=== PATIENT | male | born 1995 | race Two or more races ===

== ENCOUNTER 2020-06-02 18:35 | Emergency (ER) | payer MEDICARE, MEDICAID ==
[~2020-06-02] VITALS: Ht 157.5 cm; Wt 59.0 kg
[2020-06-02 18:38] VITALS: BP 115/54
== END 2020-06-02 19:43 | disposition left against medical advice (07) ==
LOC: ER 18:35
DX: R50.9 Fever, unspecified (principal); Z53.21 Procedure and treatment not carried out due to patient leaving prior to being seen by health care provider
CPT/HCPCS: 36415; 87426

== ENCOUNTER 2020-06-04 14:44 | Inpatient (IN) | payer MEDICARE, MEDICAID ==
[~2020-06-04] VITALS: Ht 160 cm; Wt 74.1 kg
[2020-06-04] MEDS ORDERED: SODIUM CHLORIDE 0.9% 1,000 ML IVB ONE (16:00)
[2020-06-04] MEDS ORDERED: AZITHROMYCIN 500MG/ 250ML 250 ML IV ONE (16:00)
[2020-06-04 18:09] LABS: Basophils # (auto) 0 10 ^3/uL (0-0.2); Basophils % (auto) 0.1 % (0.0-2.0); Eosinophils # (auto) 0 10 ^3/uL (0-0.8); Eosinophils % (auto) 0.2 % (0.0-7.0); Hematocrit 43.4 % (41.0-53.0); Lymphocytes # (auto) 0.6 10 ^3/uL (0.4-5.4); Lymphocytes % (auto) 12.8 % (10.0-50.0); Mean Corpuscular Hemoglobin 32.8 pg (28.0-32.0); Mean Corpuscular Hgb Conc. 34.6 g/dL (32.0-36.0); Mean Corpuscular Volume 94.6 fL (80.0-100.0); Monocytes # (auto) 0.4 10 ^3/uL (0-1.3); Monocytes % (auto) 9.9 % (0.0-12.0); Neutrophils # (auto) 3.4 10 ^3/uL (1.6-8.6); Nucleated Red Blood Cells % 0.2 %; Platelet Count (auto) 152 10^3/uL (140-450); Red Blood Cells 4.58 10^6/uL (4.5-5.90); Red Cell Distribution Width 13.5 % (11.8-14.3); White Blood Cell 4.5 10^3/uL (4.4-10.8)
[2020-06-04] MEDS ORDERED: LORazepam 2MG/ML-1ML VIAL ONE (18:20)
[2020-06-04 18:23] LABS: INR 1.03 (0.9-1.15); Partial Thromboplastin Time 30.8 sec (23.0-31.2)
[2020-06-04 18:24] LABS: Albumin 3.6 g/dL (3.4-5.0); BUN/Creatinine Ratio 10.6; Calcium 8.5 mg/dL (8.5-10.1); Magnesium 2.3 mg/dL (1.6-2.6); Potassium 3.5 mmol/L (3.5-5.1)
[2020-06-04 18:26] LABS: Bilirubin, Total 0.6 mg/dL (0.2-1.0); Total Protein 8.1 g/dL (6.4-8.2)
[2020-06-04] MEDS ORDERED: LORazepam 2MG/ML-1ML VIAL IV ONE ×2 (18:30→22:30)
[2020-06-05] VITALS (8 sets, daily range): BP systolic 91–122; BP diastolic 56–74
[2020-06-05] MEDS ORDERED: MORPHINE SULF INJ 2 MG/ML SYRINGE 1ML IV PRN (00:30)
[2020-06-05] MEDS ORDERED: ONDANSETRON HCL 4 MG/2 ML VIAL IV PRN (00:30)
[2020-06-05] MEDS ORDERED: NITROGLYCERIN 0.4 MG SL TAB SL PRN (00:30)
[2020-06-05] MEDS ORDERED: DOCUSATE SOD 100 MG CAP PO PRN (00:30)
[2020-06-05] MEDS ORDERED: ACETAMINOPHEN 325 MG TAB PO PRN (00:30)
[2020-06-05] MEDS ORDERED: HYDROcodone-ACET 5/325MG TAB PO PRN (00:30)
[2020-06-05] MEDS: LORazepam 2MG/ML-1ML VIAL IV PRN ×4 (02:00→22:35)
[2020-06-05 02:36] LABS: Basophils # (auto) 0 10 ^3/uL (0-0.2); Basophils % (auto) 0.5 % (0.0-2.0); Eosinophils # (auto) 0 10 ^3/uL (0-0.8); Hematocrit 41.4 % (41.0-53.0); Hemoglobin 14.4 g/dL (13.5-17.5); Lymphocytes # (auto) 1.1 10 ^3/uL (0.4-5.4); Lymphocytes % (auto) 36.5 % (10.0-50.0); Mean Corpuscular Hemoglobin 32.9 pg (28.0-32.0); Mean Corpuscular Hgb Conc. 34.7 g/dL (32.0-36.0); Mean Corpuscular Volume 94.8 fL (80.0-100.0); Monocytes # (auto) 0.4 10 ^3/uL (0-1.3); Neutrophils # (auto) 1.5 10 ^3/uL (1.6-8.6); Nucleated Red Blood Cells % 0.2 %; Platelet Count (auto) 153 10^3/uL (140-450); Red Blood Cells 4.37 10^6/uL (4.5-5.90); Red Cell Distribution Width 13.5 % (11.8-14.3)
[2020-06-05 02:48] LABS: Albumin 3.1 g/dL (3.4-5.0); BUN/Creatinine Ratio 11.5; Calcium 8.3 mg/dL (8.5-10.1); Potassium 3.5 mmol/L (3.5-5.1)
[2020-06-05 02:51] LABS: Bilirubin, Total 0.5 mg/dL (0.2-1.0); Total Protein 7.1 g/dL (6.4-8.2)
[2020-06-05] MEDS: D5W/SOD CHL 0.45% 1,000 ML IV SCH ×2 (05:43→21:12)
[2020-06-05] MEDS: ALBUTEROL SULF HFA 90MCG INH 200DOSE IN SCH ×3 (06:00→21:52)
[2020-06-05] MEDS: ASCORBIC ACID 500 MG TAB PO SCH ×2 (10:00→21:45)
[2020-06-05] MEDS: ENOXAPARIN SOD 40 MG/0.4 ML SYRINGE SC SCH (10:00)
[2020-06-05] MEDS: MULTIPLE VITAMIN TAB PO SCH (10:00)
[2020-06-05] MEDS: AZITHROMYCIN 500MG/ 250ML 250 ML IV SCH (10:00)
[2020-06-05] MEDS: PANTOPRAZOLE 40 MG/10 ML VIAL INJ IV SCH (10:00)
[2020-06-05] MEDS: ZINC SULFATE 220mg CAP or TAB PO SCH (10:00)
[2020-06-06 05:00] VITALS: BP 110/68
[2020-06-06 05:50] LABS: Basophils # (auto) 0 10 ^3/uL (0-0.2); Basophils % (auto) 0.3 % (0.0-2.0); Eosinophils # (auto) 0 10 ^3/uL (0-0.8); Eosinophils % (auto) 0.2 % (0.0-7.0); Hematocrit 39.5 % (41.0-53.0); Lymphocytes # (auto) 0.9 10 ^3/uL (0.4-5.4); Lymphocytes % (auto) 21.9 % (10.0-50.0); Mean Corpuscular Hemoglobin 33.5 pg (28.0-32.0); Mean Corpuscular Hgb Conc. 35.5 g/dL (32.0-36.0); Mean Corpuscular Volume 94.3 fL (80.0-100.0); Monocytes # (auto) 0.5 10 ^3/uL (0-1.3); Monocytes % (auto) 13.1 % (0.0-12.0); Neutrophils # (auto) 2.7 10 ^3/uL (1.6-8.6); Neutrophils % (auto) 64.5 % (37.0-80.0); Nucleated Red Blood Cells % 0.1 %; Platelet Count (auto) 155 10^3/uL (140-450); Red Blood Cells 4.18 10^6/uL (4.5-5.90); Red Cell Distribution Width 13.4 % (11.8-14.3); White Blood Cell 4.1 10^3/uL (4.4-10.8)
[2020-06-06 06:08] LABS: Potassium 3.4 mmol/L (3.5-5.1)
[2020-06-06 06:14] LABS: Albumin 2.7 g/dL (3.4-5.0); BUN/Creatinine Ratio 11.8; Bilirubin, Total 0.5 mg/dL (0.2-1.0); Calcium 7.9 mg/dL (8.5-10.1); Total Protein 6.9 g/dL (6.4-8.2)
[2020-06-06] MEDS: ALBUTEROL SULF HFA 90MCG INH 200DOSE IN SCH ×3 (06:45→22:00)
[2020-06-06 08:30] VITALS: BP 115/64
[2020-06-06] MEDS ORDERED: LORazepam 2MG/ML-1ML VIAL IM PRN (09:15)
[2020-06-06] MEDS: ENOXAPARIN SOD 40 MG/0.4 ML SYRINGE SC SCH (09:43)
[2020-06-06] MEDS: ZINC SULFATE 220mg CAP or TAB PO SCH (10:00)
[2020-06-06] MEDS: MULTIPLE VITAMIN TAB PO SCH (10:00)
[2020-06-06] MEDS: ASCORBIC ACID 500 MG TAB PO SCH ×2 (10:00→22:00)
[2020-06-06] MEDS: cefTRIAXone 1GM/50ML D5W 50 ML IV SCH (11:32)
[2020-06-06] MEDS: DexAMETHasone SOD PHOS 10MG/1ML VIAL INJ IV SCH (11:33)
[2020-06-06] MEDS: AZITHROMYCIN 500MG/ 250ML 250 ML IV SCH (11:34)
[2020-06-06] MEDS: PANTOPRAZOLE 40 MG/10 ML VIAL INJ IV SCH (11:36)
[2020-06-06 12:30] VITALS: BP 118/67
[2020-06-06 17:00] VITALS: BP 123/75
[2020-06-06] MEDS: LORazepam 2MG/ML-1ML VIAL IV PRN (19:55)
[2020-06-06 20:00] VITALS: BP_SYST 112
[2020-06-06 22:00] VITALS: BP 112/60
[2020-06-07 05:00] VITALS: BP 121/81
[2020-06-07] MEDS: LORazepam 2MG/ML-1ML VIAL IV PRN ×3 (05:15→18:49)
[2020-06-07] MEDS: D5W/SOD CHL 0.45% 1,000 ML IV SCH ×2 (05:36→13:57)
[2020-06-07] MEDS: ALBUTEROL SULF HFA 90MCG INH 200DOSE IN SCH ×3 (06:25→19:00)
[2020-06-07 08:30] VITALS: BP 122/69
[2020-06-07] MEDS: ENOXAPARIN SOD 40 MG/0.4 ML SYRINGE SC SCH (10:00)
[2020-06-07] MEDS: MULTIPLE VITAMIN TAB PO SCH (10:00)
[2020-06-07] MEDS: ZINC SULFATE 220mg CAP or TAB PO SCH (10:00)
[2020-06-07] MEDS: cefTRIAXone 1GM/50ML D5W 50 ML IV SCH (10:57)
[2020-06-07] MEDS: DexAMETHasone SOD PHOS 10MG/1ML VIAL INJ IV SCH (10:57)
[2020-06-07] MEDS: PANTOPRAZOLE 40 MG/10 ML VIAL INJ IV SCH (10:58)
[2020-06-07] MEDS: AZITHROMYCIN 500MG/ 250ML 250 ML IV SCH (10:58)
[2020-06-07] MEDS: ASCORBIC ACID 500 MG TAB PO SCH ×2 (10:59→22:00)
[2020-06-07 12:30] VITALS: BP 127/75
[2020-06-07 17:00] VITALS: BP 126/46
[2020-06-07 21:51] VITALS: BP 133/76
[2020-06-08] MEDS: LORazepam 2MG/ML-1ML VIAL IV PRN (00:51)
[2020-06-08 04:51] VITALS: BP 95/67
[2020-06-08] MEDS: ALBUTEROL SULF HFA 90MCG INH 200DOSE IN SCH ×2 (06:00→22:00)
[2020-06-08] MEDS: MULTIPLE VITAMIN TAB PO SCH (10:00)
[2020-06-08] MEDS: ASCORBIC ACID 500 MG TAB PO SCH ×2 (10:00→21:25)
[2020-06-08] MEDS: PANTOPRAZOLE 40 MG/10 ML VIAL INJ IV SCH (10:00)
[2020-06-08] MEDS: ENOXAPARIN SOD 40 MG/0.4 ML SYRINGE SC SCH (10:00)
[2020-06-08] MEDS: ZINC SULFATE 220mg CAP or TAB PO SCH (10:00)
[2020-06-08] MEDS: DexAMETHasone SOD PHOS 10MG/1ML VIAL INJ IV SCH (10:00)
[2020-06-08 10:12] VITALS: BP 97/76
[2020-06-08] MEDS ORDERED: LORazepam 2MG/ML-1ML VIAL IM PRN (12:00)
[2020-06-08] MEDS ORDERED: AZITHROMYCIN 200 MG/5 ML ORAL SUSP PO ONE (13:15)
[2020-06-08 15:22] VITALS: BP 97/76
[2020-06-09 05:00] VITALS: BP 112/68
[2020-06-09] MEDS: ALBUTEROL SULF HFA 90MCG INH 200DOSE IN SCH (07:55)
[2020-06-09 08:32] VITALS: BP 94/54
[2020-06-09] MEDS: ENOXAPARIN SOD 40 MG/0.4 ML SYRINGE SC SCH (10:00)
[2020-06-09] MEDS: PANTOPRAZOLE 40 MG/10 ML VIAL INJ IV SCH (10:00)
[2020-06-09] MEDS: AZITHROMYCIN 200 MG/5 ML ORAL SUSP PO SCH (10:00)
[2020-06-09] MEDS: DexAMETHasone SOD PHOS 10MG/1ML VIAL INJ IV SCH (10:00)
[2020-06-09] MEDS: ASCORBIC ACID 500 MG TAB PO SCH ×2 (10:00→21:34)
[2020-06-09] MEDS: MULTIPLE VITAMIN TAB PO SCH (10:00)
[2020-06-09] MEDS: ZINC SULFATE 220mg CAP or TAB PO SCH (10:00)
[2020-06-09 12:48] VITALS: BP 128/73
[2020-06-09] MEDS ORDERED: ALBUTEROL SULF HFA 90MCG INH 200DOSE IN PRN (15:15)
[2020-06-09 16:36] VITALS: BP 110/63
[2020-06-09 21:30] VITALS: BP 117/65
[2020-06-10 05:00] VITALS: BP 101/56
[2020-06-10 08:15] VITALS: BP 105/66
[2020-06-10 08:36] VITALS: BP 105/66
[2020-06-10] MEDS: DexAMETHasone SOD PHOS 10MG/1ML VIAL INJ IV SCH (10:00)
[2020-06-10] MEDS: ASCORBIC ACID 500 MG TAB PO SCH (10:00)
[2020-06-10] MEDS: AZITHROMYCIN 200 MG/5 ML ORAL SUSP PO SCH (10:00)
[2020-06-10] MEDS: ZINC SULFATE 220mg CAP or TAB PO SCH (10:00)
[2020-06-10] MEDS: MULTIPLE VITAMIN TAB PO SCH (10:00)
[2020-06-10] MEDS: PANTOPRAZOLE 40 MG/10 ML VIAL INJ IV SCH (10:00)
[2020-06-10] MEDS: ENOXAPARIN SOD 40 MG/0.4 ML SYRINGE SC SCH (10:00)
[2020-06-10 11:02] VITALS: BP 105/66
[2020-06-10 12:32] VITALS: BP 96/56
== END 2020-06-10 12:20 | disposition home or self-care (01) | DRG 177 ==
LOC: ER 14:44 → TELE 14:45 → TELE-WESTW 06-05 01:58
PROVIDERS: ADMIT Nurse Practitioner Family; ATTEND Family Medicine
PROC: 05HD33Z Insertion of Infusion Device into Right Cephalic Vein, Percutaneous Approach (ICD-10-PCS; principal; 2020-06-06)
PROC: B54MZZA Ultrasonography of Right Upper Extremity Veins, Guidance (ICD-10-PCS; 2020-06-06)
DX: U07.1 COVID-19 (principal); J96.01 Acute respiratory failure with hypoxia; J12.82 Pneumonia due to coronavirus disease 2019; J98.11 Atelectasis; Q90.9 Down syndrome, unspecified; Z82.49 Family history of ischemic heart disease and other diseases of the circulatory system
CPT/HCPCS: 36415; 71045; 80053; 82728; 83605; 83735; 85025; 85379; 85610; 85730; 87040; 87426; 93970; 94640; A4565; C9113; G0378; J0696; J1100

== ENCOUNTER 2021-03-31 12:02 | Emergency (ER) | payer MEDICARE, MEDICAID ==
[~2021-03-31] VITALS: Ht 160 cm; Wt 67.4 kg
[2021-03-31 12:35] VITALS: BP 143/89
[2021-03-31 16:43] LABS: Basophils # (auto) 0 10 ^3/uL (0-0.2); Basophils % (auto) 0.5 % (0.0-2.0); Eosinophils # (auto) 0 10 ^3/uL (0-0.8); Eosinophils % (auto) 0.4 % (0.0-7.0); Hematocrit 47.4 % (41.0-53.0); Lymphocytes # (auto) 2.2 10 ^3/uL (0.4-5.4); Lymphocytes % (auto) 29.8 % (10.0-50.0); Mean Corpuscular Hemoglobin 32.5 pg (28.0-32.0); Mean Corpuscular Hgb Conc. 33.8 g/dL (32.0-36.0); Mean Corpuscular Volume 96.3 fL (80.0-100.0); Monocytes # (auto) 0.7 10 ^3/uL (0-1.3); Monocytes % (auto) 9.5 % (0.0-12.0); Neutrophils # (auto) 4.4 10 ^3/uL (1.6-8.6); Neutrophils % (auto) 59.8 % (37.0-80.0); Nucleated Red Blood Cells % 0.1 %; Red Blood Cells 4.92 10^6/uL (4.5-5.90); Red Cell Distribution Width 13.9 % (11.8-14.3); White Blood Cell 7.4 10^3/uL (4.4-10.8)
[2021-03-31 17:06] LABS: Albumin 3.9 g/dL (3.4-5.0); BUN/Creatinine Ratio 10.7; Calcium 8.7 mg/dL (8.5-10.1); Potassium 4.1 mmol/L (3.5-5.1)
[2021-03-31 17:08] LABS: Bilirubin, Total 0.7 mg/dL (0.2-1.0); Total Protein 7.6 g/dL (6.4-8.2)
[2021-03-31 17:21] LABS: INR 1.01 (0.9-1.15); Partial Thromboplastin Time 29.2 sec (23.6-33.0)
[2021-03-31] MEDS ORDERED: IOHEXOL 300 MG/ML 100ML BOTTLE IJ ONE (17:41)
== END 2021-03-31 20:42 | disposition home or self-care (01) ==
LOC: ER 12:02
DX: K92.2 Gastrointestinal hemorrhage, unspecified (principal)
CPT/HCPCS: 36415; 74176; 80053; 85025; 85610; 85730; 86850; 86900; 86901

== ENCOUNTER 2022-01-04 11:44 | Emergency (ER) | payer MEDICARE, MEDICAID ==
[~2022-01-04] VITALS: Ht 160 cm; Wt 77.0 kg
[2022-01-04] MEDS ORDERED: CEPH-510 PO (14:29)
[2022-01-04] MEDS ORDERED: ACET-1158 PO (14:29)
[2022-01-04] MEDS ORDERED: cefTRIAXone SOD 1,000 MG VL IM ONE (14:30)
[2022-01-04] MEDS ORDERED: LIDOCAINE 1% HCL (LOCAL ANESTH.) INJ 20ML MDV ONE (14:40)
[2022-01-04 14:58] VITALS: BP 122/77
== END 2022-01-04 15:07 | disposition home or self-care (01) ==
LOC: ER 11:44
DX: S60.455A Superficial foreign body of left ring finger, initial encounter (principal); L03.012 Cellulitis of left finger; Z82.79 Family history of other congenital malformations, deformations and chromosomal abnormalities; Z79.899 Other long term (current) drug therapy; X58.XXXA Exposure to other specified factors, initial encounter; Y93.89 Activity, other specified; Y92.89 Other specified places as the place of occurrence of the external cause; Y99.8 Other external cause status
CPT/HCPCS: 73140; 96372; 99283; J0696; J2001

== ENCOUNTER 2022-03-29 21:35 | Emergency (ER) | payer MEDICARE, MEDICAID ==
[~2022-03-29] VITALS: Ht 149.9 cm; Wt 80.4 kg
[~2022-03-29 21:35] MED LIST: ACET-1158 PO; CEPH-510 PO
[2022-03-29 23:42] VITALS: BP 117/76
== END 2022-03-30 01:44 | disposition home or self-care (01) ==
LOC: ER 21:35
DX: J06.9 Acute upper respiratory infection, unspecified (principal); Z20.822 Contact with and (suspected) exposure to COVID-19
CPT/HCPCS: 36415; 71045; 87426; 87804

== ENCOUNTER 2024-08-22 01:03 | Inpatient (IN) | payer MEDICARE, MEDICAID ==
[~2024-08-22] VITALS: Ht 162.6 cm; Wt 88.1 kg
[~2024-08-22 01:03] MED LIST changes: -ACET-1158 PO; +ACET500T58 PO
--- NOTE | 2024-08-22 02:03 | ED.PDOC ---
SOB-HPI HPI Comments This is a 29-year-old male with history of Down syndrome presents to the ER with mother C/O of non productive cough. Pt has PMH down syndrome, non verbal. Per legal guardian pt has had a non productive cough and "heavy breathing" today. Pt SPO2 93% on RA. Mom states symptoms started 2 months ago and has progressively gotten worse over the past 4 days. She notes patient has not been as active and seems short of breath walking short distances. Also notes patient stomach has been extremely bloated. Mother states concern because patient does not communicate any of his issues, or symptoms. Denies fevers, chills, nausea, vomiting, diarrhea, recent travel or recent ill contacts. Chief Complaint: Cough Time Seen by MD: 01:18 Primary Care Provider: Houston Crow notes: Nurses Notes, Medications, Allergies Information Source: Patient, Relative (Mother) Mode of Arrival: Ambulatory Past Medical History PAST MEDICAL HISTORY: Unknown Surgical History: Denies all surgeries Family History Family History: Unknown Social History Smoker: Non-Smoker Alcohol: Denies ETOH Use Drugs: Denies Drug Use Lives In: Home Constitutional: denies: chills, diaphoresis, fatigue, fever, malaise, sweats, weakness, others EENTM: denies: blurred vision, double vision, ear bleeding, ear discharge, ear drainage, ear pain, ear ringing, eye pain, eye redness, hearing loss, mouth pain, mouth swelling, nasal discharge, nose bleeding, nose congestion, nose pain, photophobia, tearing, throat pain, throat swelling, voice changes, others Respiratory: reports: cough, shortness of breath; denies: hemoptysis, orthopnea, SOB at rest, SOB with excertion, stridor, wheezing, others Cardiovascular: denies: chest pain, dizzy spells, diaphoresis, Dyspnea on exertion, edema, irregular heart beat, left arm pain, lightheadedness, palpitations, PND, syncope, others Gastrointestinal: denies: abdomen distended, abdominal pain, blood streaked bowels, constipated, diarrhea, dysphagia, difficulty swallowing, hematemesis, melena, nausea, poor appetite, poor fluid intake, rectal bleeding, rectal pain, vomiting, others Genitourinary: denies: burning, dysuria, flank pain, frequency, hematuria, incontinence, penile discharge, penile sore, pain, testicle pain, testicle swelling, urgency, others Neurological: denies: dizziness, fainting, headache, left sided numbness, left sided weakness, numbness, paresthesia, pre-existing deficit, right sided numbness, right sided weakness, seizure, speech problems, tingling, tremors, weakness, others Musculoskeletal: denies: back pain, gout, joint pain, joint swelling, muscle pain, muscle stiffness, neck pain, others Integumetry: denies: bruises, change in color, change in hair/nails, dryness, laceration, lesions, lumps, rash, wounds, others Allergic/Immunocompromised: denies: Difficulty Healing, Frequent Infections, Hives, Itching, others Hematologic/Lymphatic: denies: anemia, blood clots, easy bleeding, easy bruising, swollen glands, others Endocrine: denies: excessive hunger, excessive sweating, excessive thirst, excessive urination, flushing, intolerance to cold, intolerance to heat, unexplained weight gain, unexplained weight loss, others Psychiatric: denies: anxiety, bipolar disorder, depression, hopeless, panic disorder, schizophrenia, sleepless, suicidal, others Physical Exam General Appearance: No Apparent Distress, Normal HEENT: Normal ENT Inspection, Pharynx Normal, TMs Normal Neck: Full Range of Motion, Non-Tender Respiratory: Chest Non-Tender, Decreased Breath Sounds, No Accessory Muscle Use, No Respiratory Distress Cardiovascular: No Edema, No JVD, No Murmur, No Gallop, Normal Peripheral Pulses, Regular Rate/Rhythm Breast Exam: Deferred Gastrointestinal: Diffuse (Tenderness), Distended, No Organomegaly, No Pulsatile Mass, Normal Bowel Sounds, Soft Genitalia: Deferred Pelvic: Deferred Rectal: Deferred Extremities: No calf tenderness, Normal capillary refill, Normal inspection, Normal range of motion, Non-tender, No pedal edema Musculoskeletal : Apperance: Normal Neurologic: Alert, patent agent II-XII nml as Tested, No Motor Deficits, Normal Affect, Normal Mood, No Sensory Deficits Cerebellar Function: Normal Reflexes: Normal Skin: Dry, Normal Color, Warm Lymphatic: No Adenopathy Was a procedure done? Was a procedure done?: No Differential Dx Differential Diagnosis: Asthma, Bronchitis, Pneumonia, Allergic Rhinitis, URI X-Ray, Labs, Meds, VS Vital Signs Date Time Temp Pulse Resp B/P (MAP) Pulse Ox O2 Delivery O2 Flow Rate FiO2 08/22/24 08:00 103 20 94 Room Air* 0 21 08/22/24 08:00 98.6 103 20 146/75 (98) 94 98.6 08/22/24 06:41 97.8 100 20 123/77 (92) 95 97.8 08/22/24 04:29 110 08/22/24 02:27 112 20 96 Room Air 08/22/24 02:27 98.7 112 20 127/73 (91) 96 98.7 08/22/24 01:40 98.4 106 20 123/70 (87) 93 98.4 08/22/24 01:40 20 93 Room Air* 0 21 Lab Test 08/22/24 06:16 08/22/24 05:18 Range/Units Troponin I High Sensitivity < 3 L < 3 L </=54 ng/L White Blood Count 8.5 4.4-10.8 10^3/uL Red Blood Count 4.21 L 4.5-5.90 10^6/uL Hemoglobin 14.2 13.5-17.5 g/dL Hematocrit 40.9 L 41.0-53.0 % Mean Corpuscular Volume 97.2 80.0-100.0 fL Mean Corpuscular Hemoglobin 33.8 H 28.0-32.0 pg Mean Corpuscular Hemoglobin Concent 34.8 32.0-36.0 g/dL Red Cell Distribution Width 13.6 11.8-14.3 % Platelet Count 254 140-450 10^3/uL Mean Platelet Volume 7.3 6.9-10.8 fL Neutrophils (%) (Auto) 62.5 37.0-80.0 % Lymphocytes (%) (Auto) 24.1 10.0-50.0 % Monocytes (%) (Auto) 12.3 H 0.0-12.0 % Eosinophils (%) (Auto) 0.1 0.0-7.0 % Basophils (%) (Auto) 1.0 0.0-2.0 % Neutrophils # (Auto) 5.3 1.6-8.6 10 ^3/uL Lymphocytes # (Auto) 2.0 0.4-5.4 10 ^3/uL Monocytes # (Auto) 1.0 0-1.3 10 ^3/uL Eosinophils # (Auto) 0 0-0.8 10 ^3/uL Basophils # (Auto) 0.1 0-0.2 10 ^3/uL Nucleated Red Blood Cells 0.0 % Sodium Level 141 136-145 mmol/L Potassium Level 3.8 3.5-5.1 mmol/L Chloride Level 104 98-107 mmol/L Carbon Dioxide Level 25 20-31 mmol/L Anion Gap 12 5-15 Blood Urea Nitrogen 13 9-23 mg/dL Creatinine 1.14 0.700-1.30 mg/dL Glomerular Filtration Rate Calc 90 >90 mL/min BUN/Creatinine Ratio 11.4 10.0-20.0 Serum Glucose 117 H 74-106 mg/dL Calcium Level 9.8 8.7-10.4 mg/dL Total Bilirubin 0.2 0.2-1.0 mg/dL Aspartate Amino Transferase (AST) 20 13-40 U/L Alanine Aminotransferase (ALT) 30 7-40 U/L Alkaline Phosphatase 140 H 46-116 U/L B-Type Natriuretic Peptide 2.90 0-100 pg/mL Total Protein 7.3 5.7-8.2 g/dL Albumin 4.4 3.2-4.8 g/dL X-Ray, Labs, Meds, VS Comment IMAGING: Chest x-ray shows no pulmonary consolidation, edema or concerns. Noted cardiomegaly. CT chest IMPRESSION: 1. Mild patchy multifocal posterior right upper and left lower lobe pulmonary infiltrate which may be bilingual inside sales representative of early developing infectious process such as pneumonia. 2. 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 LABS: CBC CMP BNP Troponin PLAN: Admit for pneumonia, and shortness of breath. Furthermore, radiologist called regarding findings of suspected anterior right lung base extra lobar sequestration. Mother is a poor historian, states that she was unsure patient born with a genetic finding and also states it is unsure the patient has history of cardiomegaly she notes it was never mentioned to her. Consider cardiac echo, consultation with Cardiology and pulmonology for further evaluation. Time of 1ST Reevaluation: 02:03 Reevaluation 1ST: Unchanged Time of 2ND Reevaluation: 04:59 Reevaluation 2ND: Unchanged Patient Education/Counseling: Diagnosis, Treatment, Prognosis, Need For Follow Up Family Education/Counseling: Diagnosis, Treatment, Prognosis, Need For Follow Up Departure 1 Departure Time of Disposition: 05:26 Impression: Primary Impression: Pneumonia Qualified Codes: J18.9 - Pneumonia, unspecified organism Additional Impressions: Shortness of breath History of Down syndrome Disposition: ADMITTED INPATIENT Condition: Stable Discharged With: Relative (Mother) Critical Care Note Critical Care Time?: No Stability Stability form required: No Heart Score Heart Score: Heart Score Response (Comments) Value History Slightly Suspicious 0 EKG Normal 0 Age <45 0 Risk Factors 1 or 2 risk factors 1 Troponin Normal limit 0 Total 1 KELY NIXON August 22, 2024 02:03
--- NOTE | 2024-08-22 03:07 | DVH ---
CHEST RADIOGRAPH Indication: sob Technique: Frontal and lateral view of the chest was obtained Comparison: None FINDINGS: Lines and Tubes: None Lungs: Clear Pleura: No effusion. No pneumothorax. Cardiomediastinal contours: Cardiomegaly. Bones: Unremarkable IMPRESSION: 1. No evidence of acute disease. 2. Cardiomegaly.
--- NOTE | 2024-08-22 04:31 | ECG ---
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
--- NOTE | 2024-08-22 05:18 | DVH ---
Exam: CT CHST AB PEL WO CON-NO IV/ORAL History: sob, enlarged heart, ABD PAIN Comparison Study: None available at time of dictation. Technique: Multidetector spiral CT of the chest, abdomen and pelvis was performed from lower neck to pubic symphysis Axial, coronal and sagittal multiplanar reformats were performed by the technologist on a separate workstation. Radiation Dose : 1. Chest/Abdomen/Pelvis: CTDIvol 20.57 mGy, DLP 1453.7 mGy*cm. Findings: Lower neck: Normal thyroid. Lungs: Mild patchy multifocal infiltrate within the posterior right upper and lower lobes. No pleura l effusion or pneumothorax. Hypoattenuating cystic structure within the anterior right lung base abut ting the pericardium and anteriorly and inferiorly adjacent to the right hilum measures 7.8 x 6.2 cm in transaxial dimension and 4.4 cm in craniocaudal dimension, having an appearance consistent with pr obable extra lobar sequestration. Heart/Vascular Structures: Normal heart size. No pericardial effusion. Lymph Nodes: No adenopathy Pleura: No pleural effusion or significant pneumothorax. Liver: The liver is enlarged, measuring 19.7 cm in craniocaudal dimension. No focal lesions. Normal hepatic vascular enhancement. Gallbladder and Biliary Tree: Unremarkable Spleen: Unremarkable Pancreas: The pancreas is normal in appearance without focal lesions or abnormal enhancement. Adrenal Glands: Unremarkable Kidneys: Kidneys demonstrate normal symmetric enhancement without focal lesions, calculi or hydroneph rosis. Bladder: Unremarkable Bowel: The stomach is grossly normal in appearance. Small bowel and colon are normal in caliber and d istribution. The appendix is not visualized; however, no secondary findings of acute appendicitis id entified. Ascites: Absent Lymphadenopathy: No mesenteric, retroperitoneal or periportal lymphadenopathy. Abdominal Wall and Mesentery: Unremarkable. Vasculature: The visualized abdominal aorta is normal in size and caliber. Abdominal and pelvic vess els demonstrate normal enhancement. Pelvic Organs: Unremarkable Musculoskeletal: No aggressive focal bony lesions, acute fractures or dislocation. IMPRESSION: 1. Mild patchy multifocal posterior right upper and left lower lobe pulmonary infiltrate which may be inside outside sales representative of early developing infectious process such as pneumonia. 2. 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
[2024-08-22 05:41] LABS: Basophils # (auto) 0.1 10 ^3/uL (0-0.2); Eosinophils # (auto) 0 10 ^3/uL (0-0.8); Eosinophils % (auto) 0.1 % (0.0-7.0); Hematocrit 40.9 % (41.0-53.0); Hemoglobin 14.2 g/dL (13.5-17.5); Lymphocytes % (auto) 24.1 % (10.0-50.0); Mean Corpuscular Hemoglobin 33.8 pg (28.0-32.0); Mean Corpuscular Hgb Conc. 34.8 g/dL (32.0-36.0); Mean Corpuscular Volume 97.2 fL (80.0-100.0); Monocytes % (auto) 12.3 % (0.0-12.0); Neutrophils # (auto) 5.3 10 ^3/uL (1.6-8.6); Neutrophils % (auto) 62.5 % (37.0-80.0); Platelet Count (auto) 254 10^3/uL (140-450); Red Blood Cells 4.21 10^6/uL (4.5-5.90); Red Cell Distribution Width 13.6 % (11.8-14.3); White Blood Cell 8.5 10^3/uL (4.4-10.8)
[2024-08-22 06:09] LABS: Alanine Aminotransferase 30 U/L (7-40); Albumin 4.4 g/dL (3.2-4.8); Anion Gap 12 (5-15); Aspartate Aminotransferase 20 U/L (13-40); BUN/Creatinine Ratio 11.4 (10.0-20.0); Blood Urea Nitrogen 13 mg/dL (9-23); Calcium 9.8 mg/dL (8.7-10.4); Carbon Dioxide 25 mmol/L (20-31); Chloride 104 mmol/L (98-107); Potassium 3.8 mmol/L (3.5-5.1); Sodium 141 mmol/L (136-145); Total Protein 7.3 g/dL (5.7-8.2)
[2024-08-22 06:14] LABS: Glucose 117 mg/dL (74-106)
[2024-08-22 06:15] LABS: Alkaline Phosphatase 140 U/L (46-116); Bilirubin, Total 0.2 mg/dL (0.2-1.0)
[2024-08-22] MEDS: cefTRIAXone 1GM/50ML D5W 50 ML IV ONE (07:43)
[2024-08-22 08:00] VITALS: PULSE 103; RESP 20; O2SAT 94
[2024-08-22] MEDS ORDERED: HYDR-3682 PO (08:10)
[2024-08-22] MEDS ORDERED: CHLO25TA59 PO (08:10)
[2024-08-22] MEDS ORDERED: DIVA250T12 PO (08:10)
[2024-08-22] MEDS ORDERED: TRAZ-227 PO (08:10)
[2024-08-22] MEDS ORDERED: ACETAMINOPHEN 325 MG TAB PO PRN (08:15)
[2024-08-22] MEDS ORDERED: ONDANSETRON HCL 4 MG/2 ML VIAL IV PRN (08:15)
--- NOTE | 2024-08-22 08:26 | DVHHP2 ---
History of Present Illness Reason for Visit: Cough History of Present Illness Ismael Shultz is a 29-year-old male with past medical history of Down syndrome and COVID who presents to the ED with a nonproductive cough and distended abdomen for 1 month per mom. Patient is nonverbal and mom Arlyn is at the chairside. Per mom she denies patient having any chest pain, shortness of breath, fever, chills, lightheadedness, weakness, dizziness, recent travels, recent sick contacts, recent ingestion of spoiled food, abdominal pain, nausea, vomiting, or diarrhea. Per mom she says she has not seen a in a patient access specialist for her child. Past Medical History Down Syndrome COVID Past Surgical History: None Family History: None Smoke: No ALCOHOL: none Drugs: None Lives: with Family Domestic Violence: Neg Review of Systems Gastrointestinal: Other (Distended abdomen) Allergies: Coded Allergies: NO KNOWN ALLERGIES (Unverified , 06/02/20) Medications Current Medications Medications Dose Ordered Sig/Erica Route Start Time Stop Time Status Last Admin Dose Admin Ceftriaxone Sodium 50 ml @ 100 mls/hr DAILY@09 IV 08/22/24 09:00 UNV Ondansetron HCl 4 mg Q4HP PRN IV 08/22/24 08:15 UNV Acetaminophen 650 mg Q6HP PRN PO 08/22/24 08:15 UNV Exam Vital Signs Vital Signs Date Time Temp Pulse Resp B/P (MAP) Pulse Ox O2 Delivery O2 Flow Rate FiO2 08/22/24 06:41 97.8 100 20 123/77 (92) 95 97.8 08/22/24 02:27 Room Air 08/22/24 01:40 0 21 General Appearance: Alert, Cooperative, No acute distress HEENT: Atraumatic, PERRLA, EOMI, Mucous membr. moist/pink Respiratory: Clear to auscultation, Normal air movement Cardiovascular: Normal S1, Normal S2, No murmurs Abdominal: Normal bowel sounds Extremities: Normal pulses Neuro: Normal tone, Sensation intact Psych/Mental Status: Other (History of down syndrome nonverbal) Labs/Xrays Labs Test 08/22/24 06:16 08/22/24 05:18 Range/Units Troponin I High Sensitivity < 3 L </=54 ng/L White Blood Count 8.5 4.4-10.8 10^3/uL Red Blood Count 4.21 L 4.5-5.90 10^6/uL Hemoglobin 14.2 13.5-17.5 g/dL Hematocrit 40.9 L 41.0-53.0 % Mean Corpuscular Volume 97.2 80.0-100.0 fL Mean Corpuscular Hemoglobin 33.8 H 28.0-32.0 pg Mean Corpuscular Hemoglobin Concent 34.8 32.0-36.0 g/dL Red Cell Distribution Width 13.6 11.8-14.3 % Platelet Count 254 140-450 10^3/uL Mean Platelet Volume 7.3 6.9-10.8 fL Neutrophils (%) (Auto) 62.5 37.0-80.0 % Lymphocytes (%) (Auto) 24.1 10.0-50.0 % Monocytes (%) (Auto) 12.3 H 0.0-12.0 % Eosinophils (%) (Auto) 0.1 0.0-7.0 % Basophils (%) (Auto) 1.0 0.0-2.0 % Neutrophils # (Auto) 5.3 1.6-8.6 10 ^3/uL Lymphocytes # (Auto) 2.0 0.4-5.4 10 ^3/uL Monocytes # (Auto) 1.0 0-1.3 10 ^3/uL Eosinophils # (Auto) 0 0-0.8 10 ^3/uL Basophils # (Auto) 0.1 0-0.2 10 ^3/uL Nucleated Red Blood Cells 0.0 % Sodium Level 141 136-145 mmol/L Potassium Level 3.8 3.5-5.1 mmol/L Chloride Level 104 98-107 mmol/L Carbon Dioxide Level 25 20-31 mmol/L Anion Gap 12 5-15 Blood Urea Nitrogen 13 9-23 mg/dL Creatinine 1.14 0.700-1.30 mg/dL Glomerular Filtration Rate Calc 90 >90 mL/min BUN/Creatinine Ratio 11.4 10.0-20.0 Serum Glucose 117 H 74-106 mg/dL Calcium Level 9.8 8.7-10.4 mg/dL Total Bilirubin 0.2 0.2-1.0 mg/dL Aspartate Amino Transferase (AST) 20 13-40 U/L Alanine Aminotransferase (ALT) 30 7-40 U/L Alkaline Phosphatase 140 H 46-116 U/L B-Type Natriuretic Peptide 2.90 0-100 pg/mL Total Protein 7.3 5.7-8.2 g/dL Albumin 4.4 3.2-4.8 g/dL ORDERING PHYSICIAN: KELY NIXON PROCEDURE(s): CTCAP - CHST AB PEL WO CON-NO IV/ORAL REASON: sob, enlarged heart, ABD PAIN ORDER NUMBER(s): [id number], ACCESSION NUMBER(s): [id number] Exam: CT CHST AB PEL WO CON-NO IV/ORAL History: sob, enlarged heart, ABD PAIN Comparison Study: None available at time of dictation. Technique: Multidetector spiral CT of the chest, abdomen and pelvis was performed from lower neck to pubic symphysis Axial, coronal and sagittal multiplanar reformats were performed by the technologist on a separate workstation. Radiation Dose : 1. Chest/Abdomen/Pelvis: CTDIvol 20.57 mGy, DLP 1453.7 mGy*cm. Findings: Lower neck: Normal thyroid. Lungs: Mild patchy multifocal infiltrate within the posterior right upper and lower lobes. No pleural effusion or pneumothorax. Hypoattenuating cystic structure within the anterior right lung base abutting the pericardium and anteriorly and inferiorly adjacent to the right hilum measures 7.8 x 6.2 cm in transaxial dimension and 4.4 cm in craniocaudal dimension, having an appearance consistent with probable extra lobar sequestration. Heart/Vascular Structures: Normal heart size. No pericardial effusion. Lymph Nodes: No adenopathy Pleura: No pleural effusion or significant pneumothorax. Liver: The liver is enlarged, measuring 19.7 cm in craniocaudal dimension. No focal lesions. Normal hepatic vascular enhancement. Gallbladder and Biliary Tree: Unremarkable Spleen: Unremarkable Pancreas: The pancreas is normal in appearance without focal lesions or abnormal enhancement. Adrenal Glands: Unremarkable Kidneys: Kidneys demonstrate normal symmetric enhancement without focal lesions, calculi or hydronephrosis. Bladder: Unremarkable Bowel: The stomach is grossly normal in appearance. Small bowel and colon are normal in caliber and distribution. The appendix is not visualized; however, no secondary findings of acute appendicitis identified. Ascites: Absent Lymphadenopathy: No mesenteric, retroperitoneal or periportal lymphadenopathy. Abdominal Wall and Mesentery: Unremarkable. Vasculature: The visualized abdominal aorta is normal in size and caliber. A bdominal and pelvic vessels demonstrate normal enhancement. Pelvic Organs: Unremarkable Musculoskeletal: No aggressive focal bony lesions, acute fractures or dislocation. IMPRESSION: 1. Mild patchy multifocal posterior right upper and left lower lobe pulmonary infiltrate which may be help desk representative of early developing infectious process such as pneumonia. 2. 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 CHEST RADIOGRAPH Indication: sob Technique: Frontal and lateral view of the chest was obtained Comparison: None FINDINGS: Lines and Tubes: None Lungs: Clear Pleura: No effusion. No pneumothorax. Cardiomediastinal contours: Cardiomegaly. Bones: Unremarkable IMPRESSION: 1. No evidence of acute disease. 2. Cardiomegaly. Assessment/Plan Assessment/Plan Assessment Persistent Cough likely due to pneumonia Suspected anterior right lung base extra liver sequestration Distended abdomen rule out gastritis versus colitis versus other etiology History of down syndrome History of COVID Plan Admit to Med surge Antiemetics Pain management CT abdomen and pelvis IV antibiotics-ceftriaxone BNP Troponin negative x2 EKG Chest x-ray UA CT chest with contrast ordered Diet Home medications reconciled DVT prophylaxis-SCDs PUD prophylaxis-not indicated no history of GERD or GI bleed Discussed plan of care with mom and nurse Pulmonary consult Plan discussed with: Other (mom) My Orders Orders - ALAYNA MCCOY Procedure Category Date Status Time Ct Chest With And Wo CT 08/22/24 Logged 08:05 Ceftriaxone 1gm/50ml PHA 08/22/24 Logged D5w (Rocephin) 09:00 Admit ADMIT 08/22/24 Transmitted 08:05 Allergies JAZMYN 08/22/24 In Process 08:05 Code Status CODE 08/22/24 Transmitted 08:05 Ondansetron Hcl PHA 08/22/24 Logged (Zofran) 08:15 Complete Blood Count LAB 08/23/24 Verified 04:00 Comprehensive LAB 08/23/24 Verified Metabolic Panel 04:00 Cardiac DIET 08/22/24 Transmitted Diet-2gna,Lofat,Lochol Breakfast Acetaminophen Tablet PHA 08/22/24 Logged (Tylenol Tablet) 08:15 Sequential JAZMYN 08/22/24 In Process Compression Device Urinalysis LAB 08/22/24 Transmitted 08:09 Date of Service: August 22, 2024 Billing Provider: ALAYNA MCCOY Common Visit Codes: [id number] INP/OBS CARE (HIGH) ALAYNA MCCOY August 22, 2024 08:26
[2024-08-22] MEDS: cefTRIAXone 1GM/50ML D5W 50 ML IV SCH (08:43)
[2024-08-22] MEDS: IOHEXOL 300 MG/ML 100ML BOTTLE IJ ONE (09:14)
[2024-08-22] MEDS: HALOPERIDOL LACTATE 5 MG/ML INJ VIAL IM ONE (09:58)
[2024-08-22] MEDS: diphenhdrAMINE HCL 50 MG/1 ML VL IM ONE (09:59)
[2024-08-22] MEDS ORDERED: DEPAKOTE 250 MG PO SCH (10:00)
--- NOTE | 2024-08-22 10:05 | DVH ---
CLINICAL INFORMATION: Rule out mass. Abnormal findings on noncontrast enhanced CT from earlier TECHNIQUE: Axial CT images of the chest were obtained after the uneventful administration of 100 mL o f Omnipaque 300 IV contrast. Coronal and sagittal reformatted images were obtained, reviewed, and sto red. One or more of the following dose reduction techniques were used: Automated exposure control. Ad justment of mA and/or kV according to patient size. CTDIvol = 26.54 mGy DLP = 806.4 mGy-cm COMPARISON: Noncontrast enhanced CT of the chest, abdomen, and pelvis dated 08/22/2024. FINDINGS: Aorta: No aneurysm or dissection. Cardiac: Heart size is within normal limits. No significant calcification. Cystic mass in the right p ericardium, abutting the right atrium, measuring up to 0.5 cm in greatest AP dimension, 5.2 cm in gre atest transverse dimension, 4.7 cm in greatest craniocaudal dimension, most consistent with a pericar dial cyst. Mediastinum/rajni: No mass or adenopathy. Lungs: Respiratory motion artifact limits evaluation. Patchy ground-glass opacities in both lungs, ma y be infectious or inflammatory in nature. No dense focal consolidation visualized. Trace bilateral p leural effusions. Pulmonary arteries: No gross abnormality. Chest wall: No mass or other abnormality. Upper abdomen: Hepatic steatosis. Gallbladder appears contracted. Bones: No acute fracture or suspicious intraosseous lesions. IMPRESSION: 1. Large pericardial cyst adjacent to the right atrium. 2. Patchy ground-glass opacities in both lungs, likely infectious or inflammatory in nature.Trace tevin ateral pleural 3. Effusions. 4. Additional findings as described above
--- NOTE | 2024-08-22 11:10 | DVHINCON2 ---
Date of service: August 22, 2024 Referring Physician Karissa Rodney NP Reason for Consultation Pneumonia History of Present Illness History Source: Patient Exam Limitations: No limitations HPI Patient is a 29-year old gentleman with a history of Down Syndrome who presented with cough. Was seen in the emergency room where chest x-ray demonstrated right lower lobe lesion and the patient was admitted for further workup. Pulmonology was consulted to assist in management. Home Meds Active Scripts Acetaminophen (Acetaminophen) 500 Mg Tab, 500 MG PO QIDP PRN, #30 TAB 0 Refills Prov:JERAMY LING 01/04/22 Cephalexin ( Keflex 500) 500 Mg Cap, 1 CAP PO BID for 7 Days, #14 CAP 0 Refills Prov:JERAMY LING 01/04/22 Reported Medications Hydroxyzine Hcl (Hydroxyzine Hcl) 25 Mg Tab, TAB PO 08/22/24 Divalproex Sodium (Divalproex Sodium) 250 Mg Tab, 1 TAB PO BID 08/22/24 Chlorpromazine HCl (Chlorpromazine Hydrochlor) 25 Mg Tab, 1 TAB PO TID 08/22/24 Trazodone Hcl (Trazodone Hcl) 50 Mg Tab, 1 TAB PO 08/22/24 Past Medical History Cardiac: No pertinent Hx Pulmonary: No pertinent Hx Central Nervous System: No pertinent Hx GI: No pertinent Hx Hemotology/Oncology: No pertinent Hx Hepatobiliary: No pertinent Hx Psychiatric: No pertinent Hx Musculoskeletal: No pertinent Hx Rheumotologic: No pertinent Hx Infectious Disease: No peritnent Hx ENT: No pertinent Hx Renal/: No pertinent Hx Endocrine: No pertinent Hx Dermatology: No pertinent Hx Past Surgical History: No pertinent Hx Family History: Hypertension Patient Family History: Hypercholesterolemia G8 FATHER Hypertension G8 MOTHER grandmother Smoker: No Hx (Negative) Alocohol: None Drugs: None Lives with: With family Domestic Violence: Neg Review of Systems Constitutional: No symptom reported Ears, Nose, & Throat: No symptom reported Eyes: No symptom reported Pulmonary/Respiratory: Cough Cardiovascular: No symptom reported Gastrointestinal: No symptom reported Genitourinary: No symptom reported Musculoskeletal: No symptom reported Skin: No symptom reported Psychiatric: No symptom reported Endocrine: No symptom reported Hemotologic/Lymphatic: No symptom reported H&P Exam Vital Signs Vital Signs Date Time Temp Pulse Resp B/P (MAP) Pulse Ox O2 Delivery O2 Flow Rate FiO2 08/22/24 06:41 97.8 100 20 123/77 (92) 95 97.8 08/22/24 02:27 Room Air 08/22/24 01:40 0 21 General Appeara: Well developed, Well nourished, Normal Appearance Head Exam: Normal inspection Neck Exam: Normal inspection, Non-tender, Normal alignment Eye Exam: bilateral eye Normal inspection, bilateral eye PERRL, bilateral eye EOMI Ear Exam: bilateral ear Auricle normal, bilateral ear Canal normal, bilateral ear TM normal Nasal Exam: Normal inspection Mouth: Normal Inspection Pulmonary/Respiratory: Normal inspection, Normal breath sounds, Chest non- tender, Lungs clear Cardiovascular/Chest: Normal inspection, Regular rate, Normal Rhythm Peripheral Pulses: 4+ Radial (R), 4+ Radial (L), 4+ Brachial (R), 4+ Brachial (L) Abdominal Exam: Normal bowel sounds Labs/Xrays Labs Test 08/22/24 06:16 08/22/24 05:18 Range/Units Troponin I High Sensitivity < 3 L </=54 ng/L White Blood Count 8.5 4.4-10.8 10^3/uL Red Blood Count 4.21 L 4.5-5.90 10^6/uL Hemoglobin 14.2 13.5-17.5 g/dL Hematocrit 40.9 L 41.0-53.0 % Mean Corpuscular Volume 97.2 80.0-100.0 fL Mean Corpuscular Hemoglobin 33.8 H 28.0-32.0 pg Mean Corpuscular Hemoglobin Concent 34.8 32.0-36.0 g/dL Red Cell Distribution Width 13.6 11.8-14.3 % Platelet Count 254 140-450 10^3/uL Mean Platelet Volume 7.3 6.9-10.8 fL Neutrophils (%) (Auto) 62.5 37.0-80.0 % Lymphocytes (%) (Auto) 24.1 10.0-50.0 % Monocytes (%) (Auto) 12.3 H 0.0-12.0 % Eosinophils (%) (Auto) 0.1 0.0-7.0 % Basophils (%) (Auto) 1.0 0.0-2.0 % Neutrophils # (Auto) 5.3 1.6-8.6 10 ^3/uL Lymphocytes # (Auto) 2.0 0.4-5.4 10 ^3/uL Monocytes # (Auto) 1.0 0-1.3 10 ^3/uL Eosinophils # (Auto) 0 0-0.8 10 ^3/uL Basophils # (Auto) 0.1 0-0.2 10 ^3/uL Nucleated Red Blood Cells 0.0 % Sodium Level 141 136-145 mmol/L Potassium Level 3.8 3.5-5.1 mmol/L Chloride Level 104 98-107 mmol/L Carbon Dioxide Level 25 20-31 mmol/L Anion Gap 12 5-15 Blood Urea Nitrogen 13 9-23 mg/dL Creatinine 1.14 0.700-1.30 mg/dL Glomerular Filtration Rate Calc 90 >90 mL/min BUN/Creatinine Ratio 11.4 10.0-20.0 Serum Glucose 117 H 74-106 mg/dL Calcium Level 9.8 8.7-10.4 mg/dL Total Bilirubin 0.2 0.2-1.0 mg/dL Aspartate Amino Transferase (AST) 20 13-40 U/L Alanine Aminotransferase (ALT) 30 7-40 U/L Alkaline Phosphatase 140 H 46-116 U/L B-Type Natriuretic Peptide 2.90 0-100 pg/mL Total Protein 7.3 5.7-8.2 g/dL Albumin 4.4 3.2-4.8 g/dL Assessment/Plan Plan Impression Hx of Down Syndrome Pneumonia Atelectasis Cough Patient seen and examined Events Low oxygen requirements On room air Vital signs stable Labs and imaging reviewed Chest x-ray shows right lower lobe lesion CT of the chest shows patchy multifocal posterior right upper and left lower lobe pulmonary infiltrate and suspected anterior right lung base extra lobar sequestration Management Supplemental oxygen as needed Titrate to maintain sats 90% or above Incentive spirometry Antibiotics Bronchodilators Monitor renal function Monitor electrolytes Supplement as needed Restart home meds Obtain CT of the chest with contrast to better characterize lung parenchyma DVT prophylaxis Plan discussed with: Patient JOÃO NICHOLAS MD August 22, 2024 11:10
[2024-08-22] MEDS: chlorproMAZINE HCL 25 MG TAB PO SCH (14:36)
[2024-08-22 19:30] VITALS: PULSE 103; RESP 24; O2SAT 98
[2024-08-22] MEDS: traZODone HCL 50 MG TAB PO SCH (22:47)
[2024-08-22] MEDS: hydrOXYzine 25 MG TAB or CAP PO PRN (22:50)
[2024-08-23 04:35] LABS: Basophils # (auto) 0 10 ^3/uL (0-0.2); Basophils % (auto) 0.6 % (0.0-2.0); Eosinophils # (auto) 0 10 ^3/uL (0-0.8); Eosinophils % (auto) 0.6 % (0.0-7.0); Hematocrit 42.5 % (41.0-53.0); Hemoglobin 14.5 g/dL (13.5-17.5); Lymphocytes # (auto) 2.3 10 ^3/uL (0.4-5.4); Lymphocytes % (auto) 37.1 % (10.0-50.0); Mean Corpuscular Hemoglobin 33.2 pg (28.0-32.0); Mean Corpuscular Hgb Conc. 34.2 g/dL (32.0-36.0); Mean Corpuscular Volume 97.1 fL (80.0-100.0); Monocytes # (auto) 0.9 10 ^3/uL (0-1.3); Monocytes % (auto) 15.4 % (0.0-12.0); Neutrophils # (auto) 2.8 10 ^3/uL (1.6-8.6); Neutrophils % (auto) 46.3 % (37.0-80.0); Nucleated Red Blood Cells % 0.2 %; Platelet Count (auto) 234 10^3/uL (140-450); Red Blood Cells 4.38 10^6/uL (4.5-5.90); Red Cell Distribution Width 13.8 % (11.8-14.3); White Blood Cell 6.1 10^3/uL (4.4-10.8)
[2024-08-23 04:57] LABS: Alanine Aminotransferase 29 U/L (7-40); Albumin 4.1 g/dL (3.2-4.8); Alkaline Phosphatase 113 U/L (46-116); Anion Gap 8 (5-15); Aspartate Aminotransferase 28 U/L (13-40); BUN/Creatinine Ratio 16.3 (10.0-20.0); Blood Urea Nitrogen 13 mg/dL (9-23); Calcium 9.6 mg/dL (8.7-10.4); Carbon Dioxide 27 mmol/L (20-31); Chloride 104 mmol/L (98-107); Potassium 4.3 mmol/L (3.5-5.1); Sodium 139 mmol/L (136-145)
[2024-08-23 05:00] LABS: Bilirubin, Total 0.2 mg/dL (0.2-1.0); Glucose 108 mg/dL (74-106)
[2024-08-23] MEDS: HALOPERIDOL LACTATE 5 MG/ML INJ VIAL IM ONE (09:37)
[2024-08-23] MEDS ORDERED: AZITHROMYCIN 200 MG/5 ML ORAL SUSP PO SCH (12:15)
[2024-08-23] MEDS: AZITHROMYCIN 250 MG TAB PO SCH (13:34)
[2024-08-23] MEDS ORDERED: AZITHROMYCIN 200 MG/5 ML ORAL SUSP PO ONE (14:00)
--- NOTE | 2024-08-23 14:13 | DVHPN2 ---
Reviewed: Care Plan, H&P, Labs, Medications, Previous Orders, Radiology Changes from previous H/P or p: No Changes Gastrointestinal: Other (Distended abdomen) Objective Vitals Vital Signs Date Time Temp Pulse Resp B/P (MAP) Pulse Ox O2 Delivery O2 Flow Rate FiO2 08/23/24 12:22 Room Air* 0 21 08/23/24 08:02 95 20 122/58 (79) 95 08/22/24 19:30 98.0 98.0 Intake/Output Intake and Output 08/23/24 07:00 Intake Total 50 ml Balance 50 ml Intake IV Total 50 ml Medications Current Medications Medications Dose Ordered Sig/Erica Route Start Time Stop Time Status Last Admin Dose Admin Ondansetron HCl 4 mg Q4HP PRN IV 08/22/24 08:15 Acetaminophen 650 mg Q6HP PRN PO 08/22/24 08:15 Chlorpromazine HCl 25 mg TID PO 08/22/24 14:00 08/23/24 07:56 25 MG Trazodone HCl 50 mg HS PO 08/22/24 22:00 08/22/24 22:47 50 MG Hydroxyzine Pamoate 25 mg Q6HP PRN PO 08/22/24 08:15 08/22/24 22:50 25 MG Divalproex Sodium 250 mg BID PO 08/22/24 22:00 08/23/24 10:51 250 MG Azithromycin 500 mg DAILY PO 08/23/24 12:40 08/27/24 12:39 08/23/24 13:34 500 MG Laboratory Results Laboratory Tests 08/23/24 04:25 Chemistry Test 08/23/24 04:25 Albumin 4.1 g/dL (3.2-4.8) Calcium Level 9.6 mg/dL (8.7-10.4) Total Protein 7.0 g/dL (5.7-8.2) LFT Test 08/23/24 04:25 Alanine Aminotransferase (ALT) 29 U/L (7-40) Alkaline Phosphatase 113 U/L (46-116) Aspartate Amino Transferase (AST) 28 U/L (13-40) Total Bilirubin 0.2 mg/dL (0.2-1.0) Labs and/or images reviewed: Labs reviewed by me, Image(s) reviewed by me Assessment/Plan Assessment/Plan Bilateral community-acquired pneumonia: Rocephin azithromycin, consult by Dr. Pate appreciated Flu test pending Lise test pending Down syndrome: Continue Depakote trazodone History of COVID pneumonia Alisa ang at bedside Plan discussed with: Patient My Orders Orders - BRAYAN CHOU MD Procedure Category Date Status Time Ceftriaxone 1gm/50ml PHA 08/24/24 Logged D5w (Rocephin) 09:00 Ceftriaxone 1gm/50ml PHA 08/23/24 Logged D5w (Rocephin) 14:15 Covid19 Antigen [facility] 08/23/24 Verified Rapid Influenza [facility] 08/23/24 Verified 14:11 Date of Service: August 23, 2024 Billing Provider: BRAYAN CHOU MD Common Visit Codes: [id number] INP/OBS CARE(HIGH) BRAYAN CHOU MD August 23, 2024 14:13
[2024-08-23] MEDS: cefTRIAXone 1GM/50ML D5W 50 ML IV ONE (14:15)
--- NOTE | 2024-08-23 15:24 | DVHPN2 ---
Progress Note - Dictate Date Seen: August 23, 2024 Medical Necessity Reason Pt with a Central, PICC or Fol: No vital signs Vital Sign Date Time Temp Pulse Resp B/P (MAP) Pulse Ox O2 Delivery O2 Flow Rate FiO2 08/23/24 12:22 Room Air* 0 21 08/23/24 08:02 95 20 122/58 (79) 95 08/22/24 19:30 98.0 98.0 Total Intake and Output 08/22/24 08/22/24 08/23/24 15:00 23:00 07:00 Intake Total 50 ml Balance 50 ml medications Current Medications Medications Dose Ordered Sig/Erica Route Start Time Stop Time Status Last Admin Dose Admin Ondansetron HCl 4 mg Q4HP PRN IV 08/22/24 08:15 Acetaminophen 650 mg Q6HP PRN PO 08/22/24 08:15 Chlorpromazine HCl 25 mg TID PO 08/22/24 14:00 08/23/24 14:50 25 MG Trazodone HCl 50 mg HS PO 08/22/24 22:00 08/22/24 22:47 50 MG Hydroxyzine Pamoate 25 mg Q6HP PRN PO 08/22/24 08:15 08/22/24 22:50 25 MG Divalproex Sodium 250 mg BID PO 08/22/24 22:00 08/23/24 10:51 250 MG Azithromycin 500 mg DAILY PO 08/23/24 12:40 08/27/24 12:39 08/23/24 13:34 500 MG Ceftriaxone Sodium 50 ml @ 100 mls/hr DAILY@09 IV 08/24/24 09:00 laboratory and microbiology Laboratory Tests 08/23/24 04:25 Test 08/23/24 04:25 Range/Units Serum Glucose 108 H 74-106 mg/dL Assessment/Plan Impression Hx of Down Syndrome Pneumonia Atelectasis Cough Patient seen and examined Events Low oxygen requirements On room air Patient noncompliant, requires redirection Stable hemodynamically Labs and imaging reviewed CT of the chest with contrast reviewed Large pericardial cyst adjacent to the right atrium. Patchy ground-glass opacities in both lungs Management Supplemental oxygen as needed Titrate to maintain sats 90% or above Incentive spirometry Okay to transition to oral antibiotics DC Rocephin Bronchodilators Monitor renal function Monitor electrolytes Supplement as needed Restart home meds Okay to discharge from pulmonary standpoint DVT prophylaxis Plan discussed with: Patient, Other (Rn) JOÃO NICHOLAS MD August 23, 2024 15:24
[2024-08-23 15:39] LABS: COVID19 ANTIGEN SOFIA FIA NEGATIVE (NEGATIVE)
[2024-08-23 15:40] LABS: Rapid Influenza A Negative (Negative); Rapid Influenza B Negative (Negative)
[2024-08-23 19:30] VITALS: PULSE 93; RESP 18
[2024-08-24 08:00] VITALS: BP 101/58; TEMP 98.7
[2024-08-24] MEDS: cefTRIAXone 1GM/50ML D5W 50 ML IV SCH (09:00)
[2024-08-24 09:07] VITALS: PULSE 92; RESP 16; O2SAT 98
[2024-08-24] MEDS ORDERED: AZIT500T66 PO (14:36)
--- NOTE | 2024-08-24 14:44 | DVHDS2 ---
Discharge Summary Date of Admission August 22, 2024 at 08:05 Date of Discharge: August 24, 2024 Admitting Diagnosis Shortness of breath Wounds: None Labs/Diagnostic Data: Laboratory Results Test 08/23/24 14:44 08/23/24 04:25 08/22/24 06:16 08/22/24 05:18 Influenza Type A Antigen Negative (Negative) Influenza Type B Antigen Negative (Negative) SARS-CoV-2 Antigen (Rapid) Negative (NEGATIVE) White Blood Count 6.1 10^3/uL (4.4-10.8) Red Blood Count 4.38 10^6/uL (4.5-5.90) Hemoglobin 14.5 g/dL (13.5-17.5) Hematocrit 42.5 % (41.0-53.0) Mean Corpuscular Volume 97.1 fL (80.0-100.0) Mean Corpuscular Hemoglobin 33.2 pg (28.0-32.0) Mean Corpuscular Hemoglobin Concent 34.2 g/dL (32.0-36.0) Red Cell Distribution Width 13.8 % (11.8-14.3) Platelet Count 234 10^3/uL (140-450) Mean Platelet Volume 6.9 fL (6.9-10.8) Neutrophils (%) (Auto) 46.3 % (37.0-80.0) Lymphocytes (%) (Auto) 37.1 % (10.0-50.0) Monocytes (%) (Auto) 15.4 % (0.0-12.0) Eosinophils (%) (Auto) 0.6 % (0.0-7.0) Basophils (%) (Auto) 0.6 % (0.0-2.0) Neutrophils # (Auto) 2.8 10 ^3/uL (1.6-8.6) Lymphocytes # (Auto) 2.3 10 ^3/uL (0.4-5.4) Monocytes # (Auto) 0.9 10 ^3/uL (0-1.3) Eosinophils # (Auto) 0 10 ^3/uL (0-0.8) Basophils # (Auto) 0 10 ^3/uL (0-0.2) Nucleated Red Blood Cells 0.2 % Sodium Level 139 mmol/L (136-145) Potassium Level 4.3 mmol/L (3.5-5.1) Chloride Level 104 mmol/L (98-107) Carbon Dioxide Level 27 mmol/L (20-31) Anion Gap 8 (5-15) Blood Urea Nitrogen 13 mg/dL (9-23) Creatinine 0.80 mg/dL (0.700-1.30) Glomerular Filtration Rate Calc 124 mL/min (>90) BUN/Creatinine Ratio 16.3 (10.0-20.0) Serum Glucose 108 mg/dL (74-106) Calcium Level 9.6 mg/dL (8.7-10.4) Total Bilirubin 0.2 mg/dL (0.2-1.0) Aspartate Amino Transferase (AST) 28 U/L (13-40) Alanine Aminotransferase (ALT) 29 U/L (7-40) Alkaline Phosphatase 113 U/L (46-116) Total Protein 7.0 g/dL (5.7-8.2) Albumin 4.1 g/dL (3.2-4.8) Troponin I High Sensitivity < 3 ng/L (</=54) B-Type Natriuretic Peptide 2.90 pg/mL (0-100) Other Laboratory Tests 08/23/24 04:25 Brief Hx & Hospital Course: 29-year-old male with a history of Down syndrome previous history of COVID pneumonia came in complaining of shortness of breaths found to have bilateral community acquired pneumonia. Treated with Rocephin and azithromycin Lise test negative flu test seen by Pulmonary Dr. Mccracken. Exertion showed pneumonia and large pericardial cyst round right atrium patient feels better afebrile on room air and discharged home on azithromycin Mom at Bedside Consults/Reason for consult Pulmonology Dr. Mccracken Operations or Procedures CT chest without contrast Condition at Discharge: Fair Final Diagnosis/Problems List Bilateral community-acquired pneumonia: Rocephin azithromycin, consult by Dr. Pate appreciated Flu test negative Lise negative Down syndrome: Continue Depakote trazodone History of COVID pneumonia Discharge Disposition: Home Discharge Instruct/Medications Diet: Regular Activity: Light activity Follow Up/Referral: Resume all previous home medications Follow up with the primary Dr Medications: Azithromycin Transmitted to pharmacy 35 (Time Taken for discharge summary 35 minutes) Discharge Statement: "Patient was advised to return to the ER or call 911 if any headaches, dizziness, shortness of breath, chest pain, abdominal pain, bleeding, fevers, or worsening of medical condition. Patient was counseled about treatment plan, medications, possible side effects, patientverbalized understanding. All questions were answered to the best of my ability. This discharge took greater then 30 minutes in planning, reviewing documentation, counseling the patient, and discussing with other team members." ASSESSMENT ASSESSMENT Hospital Course Improved Assessment Bilateral community-acquired pneumonia: Rocephin azithromycin, consult by Dr. Pate appreciated Flu test negative Lise negative Down syndrome: Continue Depakote trazodone History of COVID pneumonia Date of Service: August 24, 2024 Billing Provider: BRAYAN CHOU MD Common Visit Codes: [id number] DISCH DAY >30min BRAYAN CHOU MD August 24, 2024 14:44
--- NOTE | 2024-08-24 22:13 | DVHPN2 ---
Progress Note - Dictate Date Seen: August 24, 2024 Medical Necessity Reason Pt with a Central, PICC or Fol: No Subjective Patient seen and examined at bedside. Breathing comfortably on room air. Overnight events reviewed vital signs Vital Sign Date Time Temp Pulse Resp B/P (MAP) Pulse Ox O2 Delivery O2 Flow Rate FiO2 08/24/24 09:07 92 16 98 Room Air* 0 21 08/24/24 08:00 98.7 101/58 (72) 98.7 medications Current Medications Medications Dose Ordered Sig/Erica Route Start Time Stop Time Status Last Admin Dose Admin Ondansetron HCl 4 mg Q4HP PRN IV 08/22/24 08:15 Acetaminophen 650 mg Q6HP PRN PO 08/22/24 08:15 Chlorpromazine HCl 25 mg TID PO 08/22/24 14:00 08/24/24 05:50 25 MG Trazodone HCl 50 mg HS PO 08/22/24 22:00 08/23/24 22:44 50 MG Hydroxyzine Pamoate 25 mg Q6HP PRN PO 08/22/24 08:15 08/22/24 22:50 25 MG Divalproex Sodium 250 mg BID PO 08/22/24 22:00 08/24/24 10:08 250 MG Azithromycin 500 mg DAILY PO 08/23/24 12:40 08/27/24 12:39 08/23/24 13:34 500 MG Ceftriaxone Sodium 50 ml @ 100 mls/hr DAILY@09 IV 08/24/24 09:00 objective Gen.: Patient lying in bed in no apparent distress. Breathing on room air. Head: Normocephalic, atraumatic. Eyes: EOMI/PERRLA. Ears: Normal hearing. Normal anatomy. Neck/trachea: Trachea midline, supple. Nose: Normal external anatomy. Mouth: Moist mucous membranes. Chest: Decreased air entry bilaterally. No wheezing or rhonchi. Cardiovascular: Positive S1, positive S2. Regular rate and rhythm. Abdomen: Positive bowel sounds in all 4 quadrants. Soft, non-tender, non- distended. : Deferred. Rectal: Deferred. Skin: Warm, dry. Intact. Extremities: 2+ radial pulses bilaterally. No lower extremity edema. Neuro: Awake, alert, oriented x3. No gross motor or sensory deficits. Cranial nerves II through XII intact. Gait not assessed. laboratory and microbiology Laboratory Tests 08/23/24 04:25 Test 08/23/24 04:25 Range/Units Serum Glucose 108 H 74-106 mg/dL Assessment/Plan Impression: Hx of Down Syndrome Pneumonia, likely gram negative Atelectasis Cough Ground-glass opacities on imaging Pericardial cyst Events: Patient seen and examined at bedside. Low oxygen requirements On room air Supplemental oxygen PRN. No new events Complete abx course Continue bronchodilators IS. Antitussive PRN. Patient noncompliant, requires redirection Stable hemodynamically Disposition per hospitalist. Follow up in 1-2 weeks in Pulmonary Clinic. Labs and imaging reviewed CT of the chest with contrast reviewed Large pericardial cyst adjacent to the right atrium. Patchy ground-glass opacities in both lungs Plan: Supplemental oxygen as needed Titrate to maintain sats 90% or above Incentive spirometry Complete antibiotics Bronchodilators Monitor renal function Monitor electrolytes Supplement as needed Restart home meds Okay to discharge from pulmonary standpoint Prognosis: Poor given patient's multiple co-morbidities. Rest of plan per hospitalist and other consultants. Thank you Dr. Soto for allowing me to participate in this patient's care. Further recommendations will depend on the patient's clinical course. Please do not hesitate to contact me if you have any questions or concerns. This medical document was created using an electronic medical record system with [employer] dictation system. Although these documentations are being carefully reviewed, there may still be some phonetic and typographical changes. The errors are purely typographical, due to imperfection on the software program, and do not reflect any compromise in the patient's medical care. Plan discussed with: Patient, Other (KEELY Clay) LANNY TARIQ MD August 24, 2024 22:13
== END 2024-08-24 16:53 | disposition home or self-care (01) | DRG 178 ==
LOC: ER 01:03 → OVERFLOW 08:05
PROVIDERS: ADMIT Family Medicine; ATTEND Family Medicine
DX: J15.69 Pneumonia due to other Gram-negative bacteria (principal); J98.11 Atelectasis; Z20.822 Contact with and (suspected) exposure to COVID-19; Q90.9 Down syndrome, unspecified; Z87.01 Personal history of pneumonia (recurrent); Z79.899 Other long term (current) drug therapy; Z79.2 Long term (current) use of antibiotics; Z79.1 Long term (current) use of non-steroidal anti-inflammatories (NSAID); Z79.891 Long term (current) use of opiate analgesic; Z82.49 Family history of ischemic heart disease and other diseases of the circulatory system; Z91.199 Patient's noncompliance with other medical treatment and regimen due to unspecified reason; Q24.8 Other specified congenital malformations of heart; J15.9 Unspecified bacterial pneumonia
CPT/HCPCS: 36415; 71046; 71250; 71260; 74176; 80053; 83880; 84484; 85025; 87426; 87804; 93005; 96372; G0378; Q0161

== ENCOUNTER 2024-12-09 15:56 | Emergency (ER) | payer MEDICARE, MEDICAID ==
[~2024-12-09] VITALS: Ht 165.1 cm; Wt 81.8 kg
[~2024-12-09 15:56] MED LIST changes: +AZIT500T66 PO; +CHLO25TA59 PO; +DIVA250T12 PO; +HYDR-3682 PO; +TRAZ-227 PO
[2024-12-09 16:04] VITALS: BP 120/78; PULSE 105; RESP 16; TEMP 98.1; O2SAT 94
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
== END 2024-12-09 20:42 | disposition home or self-care (01) ==
LOC: EDBD 15:56 → ER 15:56
DX: S61.411A Laceration without foreign body of right hand, initial encounter (principal); S60.511A Abrasion of right hand, initial encounter; S00.01XA Abrasion of scalp, initial encounter; Z79.899 Other long term (current) drug therapy; X58.XXXA Exposure to other specified factors, initial encounter; Y93.9 Activity, unspecified; Y92.89 Other specified places as the place of occurrence of the external cause; Y99.8 Other external cause status